=== PATIENT | female | born 1965 | race Caucasian/White ===

== ENCOUNTER 2024-06-22 06:50 | Emergency (ER) | payer SELFPAY ==
[~2024-06-22] VITALS: Ht 162.6 cm; Wt 65.3 kg
[2024-06-22 06:50] VITALS: BP 116/60; PULSE 99; RESP 16; TEMP 97.5; O2SAT 100
[2024-06-22] MEDS: NACL 0.9% 1,000 ML IV SCH (08:46)
[2024-06-22 09:14] LABS: BASOPHILS % (AUTO) 0.2 % (0.0-2.0); EOSINOPHILS % (AUTO) 0.1 % (0.0-4.0); HEMATOCRIT 32.3 % (36-48); HEMOGLOBIN 10.8 g/dL (12.0-16.0); LYMPHOCYTES # (AUTO) 1.1 K/uL (2.5-16.5); LYMPHOCYTES % (AUTO) 8.1 % (20.5-51.1); MEAN CORPUSCULAR HEMOGLOBIN 26 pg (27-31); MEAN CORPUSCULAR HGB CONC 33 g/dL (33-37); MEAN CORPUSCULAR VOLUME 77.5 fL (80-94); MONOCYTES # (AUTO) 1.1 K/uL (0.8-1.0); MONOCYTES % (AUTO) 8.2 % (1.7-9.3); NEUTROPHILS # (AUTO) 10.9 K/uL (1.8-7.7); NEUTROPHILS % (AUTO) 83.4 % (42.2-75.2); PLATELET COUNT (AUTO) 523 K/uL (140-450); RED BLOOD CELL COUNT(AUTO) 4.17 MIL/uL (4.20-5.40); RED CELL DISTRIBUTION WIDTH 12.6 % (11.6-13.7)
[2024-06-22 09:16] LABS: CALCIUM 9.1 mg/dL (8.5-10.1); CREATININE 0.8 mg/dL (0.6-1.3)
[2024-06-22] MEDS ORDERED: HALOPERIDOL IM 5 MG/ML VIAL ONE (09:21)
[2024-06-22] MEDS ORDERED: LORazepam 2 MG/ML VIAL ONE (09:21)
[2024-06-22 09:24] LABS: ANION GAP 17.3 (8-16); CARBON DIOXIDE 24.7 mmol/L (21-32)
[2024-06-22] MEDS: NACL 0.9% 1,000 ML IV ONE (10:26)
[2024-06-22] MEDS ORDERED: ONDA-188 PO (10:50)
[2024-06-22 11:00] LABS: BILIRUBIN,URINE 1+ (NEGATIVE); BLOOD, URINE 3+ (NEGATIVE); COLOR,URINE YELLOW (YELLOW); NITRITE, URINE POSITIVE (NEGATIVE); PROTEIN,URINE 2+ (NEGATIVE); UGLUCOSE 2+ (NEGATIVE)
[2024-06-22 11:14] LABS: APPEARANCE,URINE HAZY (CLEAR)
[2024-06-22 11:16] VITALS: BP 140/80; PULSE 78; RESP 14; TEMP 98; O2SAT 99
[2024-06-22 11:31] LABS: FLU B ANTIGEN negative (NEGATIVE)
[2024-06-22 11:39] LABS: FLU A ANTIGEN POSITIVE (NEGATIVE)
[2024-06-22] MEDS ORDERED: TAM75 PO (11:43)
[2024-06-22 12:09] LABS: RBC,URINE 11-20 (MOD) /HPF (0-5)
[2024-06-22 12:10] LABS: BACTERIA,URINE 1+ /HPF (None Seen)
[2024-06-22 12:11] LABS: ICTOTEST POSITIVE (NEGATIVE)
[2024-06-22 12:13] LABS: LEUKOCYTE ESTERASE ,URINE 2+ (NEGATIVE); WBC,URINE 60-80 /HPF (0-5)
[2024-06-23] MEDS ORDERED: NITR100C7 PO (10:25)
== END 2024-06-22 11:16 | disposition home or self-care (01) ==
LOC: MED 06:50
DX: E86.0 Dehydration (principal); E87.1 Hypo-osmolality and hyponatremia; N17.9 Acute kidney failure, unspecified; J10.1 Influenza due to other identified influenza virus with other respiratory manifestations; N39.0 Urinary tract infection, site not specified; Z20.822 Contact with and (suspected) exposure to COVID-19; E11.9 Type 2 diabetes mellitus without complications; I10 Essential (primary) hypertension; E78.5 Hyperlipidemia, unspecified; Z90.49 Acquired absence of other specified parts of digestive tract; Z90.710 Acquired absence of both cervix and uterus; Z79.899 Other long term (current) drug therapy
CPT/HCPCS: 36415; 80048; 81001; 85025; 87086; 87426; 87804; 93005; 96360; 96361; 99284; J7030; 87186; J1630; J2060